=== PATIENT | female | born 1965 | race Caucasian/White ===

== ENCOUNTER 2016-12-09 09:14 | Day surgery (SDC) | payer OTHER ==
[~2016-12-09] VITALS: Ht 147.3 cm; Wt 49.0 kg
[~2016-12-09 09:14] MED LIST: CONZIP300 MG PO; DEXILANT60 MG PO; EXTRA STRENGTH500 MG PO; HYDROCODON-ACE1 EAC7 PO; IRON325 M1 PO; LIPITOR40 MG PO; MIRAPEX0.125 MG PO
[2016-12-12] MEDS ORDERED: ASPIR 8181 M1 PO (13:32)
== END 2016-12-09 11:30 | disposition home or self-care (01) ==
LOC: PAIN 09:14 → SDC 10:00 → PAIN 11:30
DX: M47.24 Other spondylosis with radiculopathy, thoracic region (principal); M54.6 Pain in thoracic spine; G89.29 Other chronic pain; M51.14 Intervertebral disc disorders with radiculopathy, thoracic region; G25.81 Restless legs syndrome; I10 Essential (primary) hypertension; R00.2 Palpitations; R73.03 Prediabetes; Z79.82 Long term (current) use of aspirin; Z79.891 Long term (current) use of opiate analgesic
CPT/HCPCS: J1030; J2250; J3010; S0020

== ENCOUNTER 2016-12-16 09:25 | Day surgery (SDC) | payer OTHER ==
[~2016-12-16] VITALS: Ht 147.3 cm; Wt 49.0 kg
[~2016-12-16 09:25] MED LIST changes: +ASPIR 8181 M1 PO
== END 2016-12-16 10:40 | disposition home or self-care (01) ==
LOC: PAIN 09:25 → SDC 10:00 → PAIN 10:40
DX: M47.24 Other spondylosis with radiculopathy, thoracic region (principal); M51.14 Intervertebral disc disorders with radiculopathy, thoracic region; I10 Essential (primary) hypertension; K21.9 Gastro-esophageal reflux disease without esophagitis; R73.03 Prediabetes; Z79.82 Long term (current) use of aspirin; Z86.73 Personal history of transient ischemic attack (TIA), and cerebral infarction without residual deficits; Z79.891 Long term (current) use of opiate analgesic
CPT/HCPCS: J1030; J2250; J3010; S0020

== ENCOUNTER 2017-02-11 13:28 | Day surgery (SDC) | payer OTHER ==
[~2017-02-11] VITALS: Ht 147.3 cm; Wt 49.0 kg
== END 2017-02-11 15:30 | disposition home or self-care (01) ==
LOC: PAIN 13:28 → SDC 14:30 → PAIN 14:30
DX: M47.24 Other spondylosis with radiculopathy, thoracic region (principal); M51.14 Intervertebral disc disorders with radiculopathy, thoracic region; M54.6 Pain in thoracic spine; G89.29 Other chronic pain; I10 Essential (primary) hypertension; Z79.82 Long term (current) use of aspirin; Z79.891 Long term (current) use of opiate analgesic; Z86.73 Personal history of transient ischemic attack (TIA), and cerebral infarction without residual deficits
CPT/HCPCS: J1030; J2250; J3010; S0020

== ENCOUNTER 2017-02-18 08:41 | Day surgery (SDC) | payer OTHER ==
[~2017-02-18] VITALS: Ht 147.3 cm; Wt 49.0 kg
== END 2017-02-18 10:10 | disposition home or self-care (01) ==
LOC: PAIN 08:41 → SDC 09:30 → PAIN 10:10
DX: M47.24 Other spondylosis with radiculopathy, thoracic region (principal); M51.14 Intervertebral disc disorders with radiculopathy, thoracic region; I10 Essential (primary) hypertension; R73.03 Prediabetes; K21.9 Gastro-esophageal reflux disease without esophagitis; Z79.82 Long term (current) use of aspirin; Z79.891 Long term (current) use of opiate analgesic; Z86.73 Personal history of transient ischemic attack (TIA), and cerebral infarction without residual deficits
CPT/HCPCS: J1030; J1885; J2250; J3010; S0020